=== PATIENT | male | born 1980 | race African-American/Black ===

== ENCOUNTER 2020-01-28 16:38 | Emergency (ER) | payer OTHER ==
[~2020-01-28] VITALS: Ht 193 cm; Wt 81.7 kg
[2020-01-28] MEDS ORDERED: NORCO 5-325 TA1 EAC2 PO (20:06)
[2020-01-28] MEDS ORDERED: ZANAFLEX4 MG PO (20:06)
[2020-01-28] MEDS ORDERED: MEDROLDOSEPACK PO (20:06)
[2020-01-28] MEDS ORDERED: IBUPROFEN 800800 M1 PO (20:06)
[2020-01-28 20:22] VITALS: BP 155/101
== END 2020-01-28 20:23 | disposition home or self-care (01) ==
LOC: M.ERS 16:38
DX: M54.42 Lumbago with sciatica, left side (principal); M54.41 Lumbago with sciatica, right side; I10 Essential (primary) hypertension